=== PATIENT | female | born 1975 ===

== ENCOUNTER 2023-07-05 17:43 | Emergency (ER) | payer OTHER, SELFPAY ==
--- NOTE | ~2023-07-05 | XR_ITS ---
EXAMINATION: XR CHEST CLINICAL INFORMATION: Pain. COMPARISON: None available. TECHNIQUE: 2 views of the chest were obtained. FINDINGS: The lungs are clear. The cardiomediastinal silhouette is normal in size. There is no pleural effusion or pneumothorax. No acute osseous abnormality. Right upper quadrant surgical clips. XR/XR chest 2V IMPRESSION: No acute cardiopulmonary findings.
[2023-07-05 17:59] VITALS: BP 129/81; PULSE 64; RESP 18; TEMP 36.8; BMI 43.9
--- NOTE | 2023-07-05 18:04 | ED.ASTHMA ---
HPI - Asthma General Chief Complaint: Asthma Stated Complaint: asthma, sob Time Seen by Provider: 07/05/23 20:20 Source: patient Mode of arrival: ambulatory Limitations: no limitations History of Present Illness HPI Narrative: Patient is a 48-year-old female presents emergency department reporting shortness of breath and chest tightness for 2 days. She reports that 2 weeks ago she tested positive for COVID, her symptoms had completely resolved about 4 or 5 days ago. She thought her symptoms over the past 2 days were due to her asthma, she has been using her inhaler and nebulizer without any improvement. She states that while she was at work today she was having a difficult time and had to leave to come to the ED. she does report a nonproductive cough associated with this. Denies fevers, chills, headache, neck pain, nausea vomiting, abdominal pain. She reports a personal history of breast cancer with mastectomy, s/p chemo and radiation in remission since 2018 or 2019. Denies personal history of DVT/PE, denies recent lower extremity swelling, pain, redness, prolonged immobilization or extended travel Related Data Previous Rx's Medication Instructions Recorded azithromycin 250 mg tablet See Rx Instructions PO .COMPLEX #6 07/05/23 tabs prednisone 20 mg tablet 40 mg (2 x 20 mg) PO DAILY 4 days 07/05/23 #8 tabs Allergies Allergy/AdvReac Type Severity Reaction Status Date / Time No Known Allergies Allergy Verified 07/05/23 18:06 Review of Systems Review of Systems: Yes all other systems are reviewed and are negative PMFSH Past Medical History Attestation statement: The following information was validated with the patient. Source: old records reviewed Social History Social History Smoked in Last 30 Days: No Use of substances other than those prescribed or required for medical reasons: No Advance Directives: No Advance Directives Information Provided: No Patient : No Physical Exam Vital Signs: Vital Signs: Last Vital Signs Temp 98.2 F 07/05/23 23:34 Pulse 92 07/05/23 23:34 Resp 17 07/05/23 23:34 BP 100/51 L 07/05/23 23:34 Pulse Ox 97 07/05/23 23:34 O2 Del Method Room Air 07/05/23 23:34 BMI result Body Mass Index 43.9 Appearance: Alert.?Oriented to person, place and time. No acute distress.?Normal affect. Eyes: Pupils equal, round and reactive to light.? ENT: Pharynx normal.?? Neck: Normal inspection.? Neck supple.?? CVS: Heart sounds normal. Normal heart rate and rhythm.? Pulses normal.?? Respiratory: No respiratory distress.? Lung sounds diminished at the bases, mild rhonchi/ expiratory wheezing? Abdomen: Soft and non-tender. Normoactive bowel sounds. No pulsatile mass.?? Skin: Skin warm and dry.? Normal skin color.? Normal skin turgor.?? Extremities: No lower extremity edema.? No calf ttp? Neuro: Moves all extremities spontaneously. Sensation intact bilaterally. CN II-XII intact. No focal neuro deficits. Ambulates with normal steady gait. Course Course Course Narrative: RMMarcelino- 48-year-old female past medical history significant for breast cancer, asthma presents for evaluation of shortness of breath and fatigue. She also reports history of anemia. She reports that she had COVID 2 weeks ago. Plan for chest x-ray, viral swabs, basic labs Reevaluation(s) Reevaluation #1: D-dimer negative, unlikely PE. EKG reveals normal sinus rhythm with ventricular rate of 93, no ST elevation ST depression, T-wave inversion in V3-V4, troponin nondetectable given duration of symptoms, unlikely ACS. Most consistent with bronchitis, mild asthma exacerbation. Discussed this with patient. Auditory O2 trial with room air saturation 97% and greater, reports improvement in symptoms since arrival. Plan for discharge home, strict return precautions, outpatient follow-up with primary care provider. All questions answered. Time: 22:44 Medications Administered Discontinued Medications Generic Name Dose Route Start Last Admin Trade Name Andrew PRN Reason Stop Dose Admin Albuterol Sulfate 2.5 mg/ 5 mg 07/05/23 21:34 07/05/23 21:35 Albuterol Sulfate 2.5 mg INHALE 07/05/23 21:35 5 mg ONCE ONE Administration Prednisone 60 mg 07/05/23 20:42 07/05/23 21:03 Prednisone 20 Mg Tablet PO 07/05/23 20:43 60 mg ONCE ONE Administration Medical Decision Making Medical Decision Making [facility] Narrative: Patient is a 48-year-old female with past medical history of asthma, breast cancer, hypothyroidism presents emergency department for evaluation of shortness a breath chest tightness as per HPI. At the time of my examination she appears fatigued, no respiratory distress. She is without tachypnea tachycardia or hypoxia. She is able to speak clear full sentences. Will obtain CBC to evaluate for leukocytosis/ anemia, BMP to evaluate for abnormal electrolytes /abnormal renal function, EKG and troponin to evaluate for ischemia/ACS. Chest x-ray to evaluate for consolidation/ infiltrate/ mass/ pulmonary congestion. Patient to receive oral prednisone and albuterol nebulizer. Disposition pending result. Differential Diagnosis Differential Diagnoses: The differential diagnosis associated with the presentation includes (Viral syndrome, bronchitis, asthma exacerbation, pneumonia, PE, ACS) Admission/Observation Consideration of admission/observation: Escalation of care including admission/observation considered (See narrative above in course narrative for further detail) Lab Data MDM Lab Attestation statement: I reviewed the patient's lab results. CBC is without leukocytosis, no anemia. No electrolyte abnormality. COVID-19/influenza testing negative. D-dimer negative, unlikely PE. 07/05/23 18:22 07/05/23 18:22 Labs: Lab Results 07/05/23 07/05/23 Range/Units 18:22 20:57 WBC 8.7 (4.8-10.8) X10*3/uL RBC 4.57 (4.20-5.50) X10*6/uL Hgb 12.4 (12.0-16.0) g/dl Hct 38.9 (37.0-47.0) % MCV 85.1 (80.0-98.0) fL MCH 27.1 (27.0-33.0) pg MCHC 31.9 (31.0-35.0) g/dl RDW 12.8 (11.0-16.0) % Plt Count 306 (160-400) X10*3/uL MPV 8.8 L (9.4-12.3) fL Immature Gran % (Auto) 0.6 H (0.0-0.4) % Neut % (Auto) 64.0 (45-73) % Lymph % (Auto) 26.1 (20-40) % Reagan % (Auto) 7.0 (2-11) % Eos % (Auto) 2.0 (0-4) % Baso % (Auto) 0.3 (0-2) % Lymph # (Auto) 2.3 (1.2-4.9) X10*3/uL Reagan # (Auto) 0.6 (0.1-1.2) X10*3/uL Eos # (Auto) 0.2 (0.0-0.4) X10*3/uL Baso # (Auto) 0.0 (0.0-0.2) X10*3/uL Abs Immat Gran (auto) 0.05 H (0.00-0.03) X10*3/uL Absolute Neuts (auto) 5.6 (2.0-8.3) x10*3/uL Absolute Nucleated RBC 0.000 (0.0-0.012) X10*3/uL Nucleated RBC % (auto) 0.0 (0.0-0.2) /100WBC D-Dimer High Sensitivty < 150 NG/ML Sodium 139 (135-145) mmol/L Potassium 3.8 (3.3-5.1) mmol/L Chloride 108 (96-108) mmol/L Carbon Dioxide 22 (22-29) mmol/L Anion Gap 13 (12-20) BUN 4 L (9-16) mg/dL Creatinine 0.61 (0.5-1.4) mg/dL Estim Creat Clear Calc 132.4 Estimated GFR > 60 Random Glucose 97 (60-115) mg/dL Calcium 9.6 (8.4-10.2) mg/dL Troponin I High Sens < 2.7 (<3.5-17.0) ng/L COVID-19 (OTF) Negative (Negative) COVID-19 Clin Com See Note Influenza Type A (LESLEE) Negative (Negative) Influenza Type B ([facility]LEE) Negative (Negative) Influenza A & B Note See Note Independent Interpretation I performed an independent interpretation of an: EKG (See course narrative) and Plain X-Ray (I personally interpreted XR and agree with radiologist impression) Radiology Impression Discussion of test interpretation with radiology: I have reviewed the radiologist's reading. Radiologist Impression: XR/XR chest 2V IMPRESSION: No acute cardiopulmonary findings. External Record Review External record reviewed: Outpatient record Tests considered The following testing was considered but not selected: CT angio chest, dimer negative, unlikely PE Prescription Management I considered prescription management with: Antibiotic and Other (Prednisone) Critical Care Time Critical Care Time Critical Care Time: Yes Total Critical Care Time: 40 Attestation: I personally attest to this critical care time spent taking care of the patient exclusive of all other billable procedures was approximately 40 minutes including initial evaluation of patient, ordering tests, x-ray interpretation, EKG interpretation, medical consultation, documentation, re-evaluation. Discharge Plan Discharge Clinical Impression: Acute bronchitis with asthma with acute exacerbation Patient Disposition: Home, Self-Care Instructions: Asthma (ED), Acute Bronchitis (ED) Additional Instructions: Take medications as prescribed, continue using your inhalers. Be sure to rest, stay well hydrated drinking plenty of fluids, eat small frequent meals. Tylenol/ibuprofen can be used as needed for fever/pain. [id number] cold medications may be helpful as well for symptoms. Saline nasal spray, humidifier may be helpful for nasal congestion. You may return to the emergency department with any new or worsening symptoms or concerns. Follow-up with your primary care provider as needed. Prescriptions: New prednisone 20 mg tablet 40 mg PO DAILY 4 Days Qty: 8 0RF azithromycin 250 mg tablet See Rx Instructions .ROUTE .COMPLEX Qty: 6 0RF Rx Instructions: For 250 mg dose pack: take 500 mg today (day 1), then 250 mg for 4 days (days 2-5) Referrals: Maria Victoria Rasmussen MD [Primary Care Provider] - Stand Alone Forms: Work/School Release
[2023-07-05 18:35] LABS: MANUAL DIFF FLAG NO
[2023-07-05 18:38] LABS: Basophils Percent Auto 0.3 % (0-2); Eosinophils Absolute Auto 0.2 X10*3/uL (0.0-0.4); Hematocrit 38.9 % (37.0-47.0); Hemoglobin 12.4 g/dl (12.0-16.0); Imm Gran Abs Auto 0.05 X10*3/uL (0.00-0.03); Imm Gran Pct Auto 0.6 % (0.0-0.4); Lymphocytes Absolute Auto 2.3 X10*3/uL (1.2-4.9); Lymphocytes Percent Auto 26.1 % (20-40); Mean Corpuscular HGB Conc 31.9 g/dl (31.0-35.0); Mean Corpuscular Hemoglobin 27.1 pg (27.0-33.0); Mean Corpuscular Volume 85.1 fL (80.0-98.0); Mean Platelet Volume 8.8 fL (9.4-12.3); Monocytes Absolute Auto 0.6 X10*3/uL (0.1-1.2); Neutrophils Absolute Auto 5.6 x10*3/uL (2.0-8.3); Platelet Count 306 X10*3/uL (160-400); Red Blood Count 4.57 X10*6/uL (4.20-5.50); Red Cell Distribution Width 12.8 % (11.0-16.0); White Blood Count 8.7 X10*3/uL (4.8-10.8)
[2023-07-05 18:56] LABS: Anion Gap 13 (12-20); Blood Urea Nitrogen 4 mg/dL (9-16); Calcium 9.6 mg/dL (8.4-10.2); Carbon Dioxide 22 mmol/L (22-29); Chloride 108 mmol/L (96-108); Creatinine Clr Calc Pharmacy 132.4; Estimated Glomerular Filt Rate > 60; Glucose Random 97 mg/dL (60-115); Potassium 3.8 mmol/L (3.3-5.1); Sodium 139 mmol/L (135-145)
[2023-07-05 19:30] LABS: COVID-19 Test Negative (Negative); IDNOW Serial# 08D9AD1C; IDNOW Serial# 152EDE1D; Influenza A Negative (Negative); Influenza B2 Negative (Negative)
[2023-07-05 20:00] VITALS: BP 139/91; PULSE 72; RESP 18; TEMP 36.7; O2SAT 100
[2023-07-05] MEDS: predniSONE 20 MG TABLET 60 MG PO (21:03)
[2023-07-05 21:23] LABS: D Dimer High Sensitivity < 150 NG/ML
--- NOTE | 2023-07-05 21:26 | ECG_ITS ---
Test Reason : SOB Blood Pressure : / mmHG Vent. Rate : 093 BPM Atrial Rate : 093 BPM P-R Int : 136 ms QRS Dur : 088 ms QT Int : 370 ms P-R-T Axes : 036 -03 033 degrees QTc Int : 460 ms Normal sinus rhythm with sinus arrhythmia Minimal voltage criteria for LVH, may be normal variant ( R in aVL ) Nonspecific T wave abnormality Prolonged QT Abnormal ECG No previous ECGs available Referred By: Roberta Renae Electronically Signed By:JOE YI MD
[2023-07-05] MEDS: Albuterol Sulfate 2.5 MG, Albuterol Sulfate (0.083%) 2.5 MG 5 MG INHALE (21:35)
[2023-07-05 21:37] VITALS: PULSE 68; O2SAT 99
[2023-07-05 22:00] VITALS: BP 113/52; PULSE 99; RESP 14; TEMP 36.9; O2SAT 96
[2023-07-05 22:32] LABS: Troponin-I High Sensitivity < 2.7 ng/L (<3.5-17.0)
--- NOTE | 2023-07-05 23:14 | MHC.EDTECH ---
Tech walked PT with O2 ranging from 98%-100%, and MI 105-116
[2023-07-05 23:34] VITALS: BP 100/51; PULSE 92; RESP 17; TEMP 36.8; O2SAT 97
== END 2023-07-06 20:05 | disposition home or self-care (01) ==
PROVIDERS: Nurse Practitioner Family; Physician Assistant; Emergency Provider Student in an Organized Health Care Education/Training Program; PCP Internal Medicine
DX: J20.9 Acute bronchitis, unspecified (principal); J45.901 Unspecified asthma with (acute) exacerbation; R06.02 Shortness of breath; Z11.52 Encounter for screening for COVID-19
CPT/HCPCS: 36415; 71046; 80048; 84484; 85025; 85379; 87502; 87635; 93005; 94640; 99284; 99285

== ENCOUNTER → 2023-07-05 21:26 | Outpatient (BNV) | payer OTHER, SELFPAY | PROVIDERS: Emergency Provider Student in an Organized Health Care Education/Training Program; PCP Internal Medicine; Visit Provider Internal Medicine Cardiovascular Disease | DX: R94.31 Abnormal electrocardiogram [ECG] [EKG] (principal) | CPT/HCPCS: 93010 ==